=== PATIENT | female | born 1955 | race Caucasian/White ===

== ENCOUNTER 2016-10-02 14:14 | Outpatient (CLI) | payer MEDICARE | END 2016-10-02 14:15 | disposition home or self-care (01) | LOC: NC 14:14 | PROVIDERS: ATTEND Family Medicine | DX: E11.9 Type 2 diabetes mellitus without complications (principal) ==

== ENCOUNTER 2016-11-21 17:30 | Outpatient (CLI) | payer MEDICARE, OTHER | END 2016-11-21 17:31 | disposition home or self-care (01) | LOC: NC 17:30 | PROVIDERS: ATTEND Family Medicine | DX: E11.9 Type 2 diabetes mellitus without complications (principal); Z71.3 Dietary counseling and surveillance ==

== ENCOUNTER 2016-12-05 17:30 | Outpatient (CLI) | payer MEDICARE, OTHER | END 2016-12-05 17:31 | disposition home or self-care (01) | LOC: NC 17:30 | PROVIDERS: ATTEND Family Medicine | DX: Z71.3 Dietary counseling and surveillance (principal); E11.9 Type 2 diabetes mellitus without complications ==

== ENCOUNTER → 2016-12-12 | Outpatient (CLI) | payer MEDICARE, OTHER | END | disposition home or self-care (01) | LOC: NC 17:30 | PROVIDERS: ATTEND Family Medicine | DX: E11.9 Type 2 diabetes mellitus without complications (principal); Z71.3 Dietary counseling and surveillance; E66.9 Obesity, unspecified; Z68.41 Body mass index [BMI] 40.0-44.9, adult; Z87.891 Personal history of nicotine dependence ==